=== PATIENT | female | born 1980 | race Two or more races ===

== ENCOUNTER → 2021-04-08 06:35 | Outpatient (CLI) | payer OTHER, SELFPAY ==
[2021-04-08 18:16] LABS: SARS-CoV-2 RNA PCR Negative
== END ==
PROVIDERS: PCP Family Medicine; Visit Provider Family Medicine
DX: R68.89 Other general symptoms and signs (principal); Z20.822 Contact with and (suspected) exposure to COVID-19
CPT/HCPCS: C9803; U0003; U0005

== ENCOUNTER 2021-11-15 16:44 | Emergency (ER) | payer BC, SELFPAY ==
--- NOTE | ~2021-11-15 | XR_ITS ---
EXAMINATION: XR chest 2V EXAM DATE: 11/15/2021 17:43 INDICATION: COUGH, CP, POS COVID. TECHNIQUE: Frontal and lateral projections of the chest obtained and reviewed. There is no prior jay jay dy for comparison. FINDINGS: The lungs are clear. There are no pleural effusions. The cardiomediastinal silhouette is within normal limits. There is no pneumothorax suspected. The bones and soft tissues are unremarkab le. IMPRESSION: No acute cardiopulmonary findings. Reviewed, dictated and finalized at location G. COUPLER
[2021-11-15 16:56] VITALS: BP 104/53; PULSE 74; RESP 20; TEMP 35.9; O2SAT 100
--- NOTE | 2021-11-15 17:29 | ED.URI ---
HPI - URI/Sore Throat General Chief Complaint: Upper Respiratory Infection Stated Complaint: sob/cp Time Seen by Provider: 11/15/21 17:29 Source: patient and RN notes reviewed Mode of arrival: ambulatory Limitations: no limitations History of Present Illness HPI Narrative: 41-year-old female presents with concern for cough, chest pressure, chest discomfort with coughing, shortness of breath, sore throat, body aches, fluid retention, skin burning. Reports her son tested positive for Covid 2 days ago. She denies any snlq-yqj-eokiaqh intervention for her symptoms. MD elicited complaint: cough and sore throat Related Data Allergies Allergy/AdvReac Type Severity Reaction Status Date / Time No Known Allergies Allergy Mild Unverified 12/21/09 00:21 Review of Systems Review of Systems: CONSTITUTIONAL: Reports malaise. Denies chills, sweats, or fever. EYES: Denies visual changes, redness, or discharge. ENT: Denies rhinorrhea, congestion, sinus pain, otalgia. Reports sore throat. CARDIOVASCULAR: Denies chest pain, palpitations, or edema. RESPIRATORY: Reports cough, chest discomfort with coughing, dyspnea. GASTROINTESTINAL: Denies abdominal pain, nausea, vomiting, diarrhea SKIN: Denies rash or itching. Reports skin burning MUSCULOSKELETAL: Reports myalgia. NEUROLOGIC: Denies headache. All systems reviewed & are unremarkable except as noted in HPI and below PMFSH Comments At time of signature, agree with nursing past medical, surgical, social and family history. There is no relevant family history pertinent to the presenting complaint Exam Narrative: GENERAL: Well-appearing, well-nourished, and in no acute distress. HEAD: Normocephalic EYES: PERRLA, conjunctivae clear ENT: Nares clear. Mucous membranes moist. TM pearly ashton with dull light reflex bilaterally; no tragal tenderness. Oropharynx not erythematous without lesions. Tonsils not enlarged and without exudate, no drooling, no hoarseness, no trismus, uvula midline. NECK: Supple. No lymphadenopathy CHEST: Clear to auscultation, breath sounds equal. No wheezing, rhonchi, rales, or stridor. No respiratory distress, speaks in full sentences. HEART: Regular rate and rhythm. No murmur heard. SKIN: Warm, dry, no rash. NEURO: Alert and oriented x3. PSYCH: Normal mood and affect Course Course Emergency Course: Patient is aware of diagnosis, understands and agrees to treatment plan. Anticipatory guidance given. Patient agrees to follow-up as directed and is aware of reasons to seek care at the emergency department. Portions of this record may have been created with voice recognition software Level of Care: Express Care Visit Vital Signs Vital signs: Vital Signs Temperature 96.7 F L 11/15/21 16:56 Pulse Rate 74 11/15/21 16:56 Respiratory Rate 20 11/15/21 16:56 Blood Pressure 104/53 L 11/15/21 16:56 Pulse Oximetry 100 11/15/21 16:56 Temperature 96.7 F L 11/15/21 16:56 Pulse Rate 74 11/15/21 16:56 Respiratory Rate 20 11/15/21 16:56 Blood Pressure 104/53 L 11/15/21 16:56 Pulse Oximetry 100 11/15/21 16:56 Reviewed. MDM - URI/Sore Throat MDM Narrative Medical decision making narrative: Differential diagnosis considered: Koehler virus, strep pharyngitis, allergic rhinitis, upper respiratory tract infection, sinusitis, rhinosinusitis, nasopharyngitis. viral pharyngitis, otitis media, otitis externa, pneumonia, bronchitis, viral cough syndrome, viral syndrome, and influenza. Exam findings show no acute concerns or changes; patient is non-toxic appearing and is in no distress. Patient is appropriate for outpatient treatment and follow-up. Lab Data Attestation: I reviewed the patient's lab results. Labs: Lab Results 11/15/21 Range/Units 16:56 POC SARS CoV-2 Ag Positive (Negative) Influenza A Screen Negative Reference Range: Negative Influenza B Screen Negative
== END 2021-11-15 18:09 | disposition home or self-care (01) ==
PROVIDERS: Emergency Provider Nurse Practitioner; PCP Family Medicine
DX: U07.1 COVID-19 (principal)
CPT/HCPCS: 71046; 87426; 87804; 99213; C9803; G0463

== ENCOUNTER 2022-04-11 11:39 | Emergency (ER) | payer BC, SELFPAY ==
[2022-04-11 11:57] VITALS: BP 93/53; PULSE 79; RESP 14; TEMP 36.6; O2SAT 100
[2022-04-11 13:49] LABS: Basophils Percent Auto 0.7 % (0.2-1.2); Eosinophils Absolute Auto 0.1 K/mm3 (0-0.3); Eosinophils Percent Auto 1.5 % (0-4.4); Hematocrit 37.1 % (37.0-47.0); Hemoglobin 11.5 g/dL (12.0-15.0); Lymphocytes Absolute Auto 1.64 K/mm3 (0.9-3.2); Lymphocytes Percent Auto 40.9 % (18.3-44.2); Mean Corpuscular Hemoglobin 27.7 pg (26-34); Mean Corpuscular Volume 89.4 fl (80-100); Mean Platelet Volume 10.1 fl (7.4-10.4); Monocytes Absolute Auto 0.3 K/mm3 (0.1-0.6); Monocytes Percent Auto 7.7 % (2.6-8.5); Neutrophils Percent Auto 49.2 % (45.5-73.1); Platelet Count Result 207 k/mm3 (150-375); Red Blood Count 4.15 M/mm3 (4.2-5.4); Red Cell Distribution Width 14.6 % (11.5-14.5)
[2022-04-11 14:07] LABS: Prothrombin Time 12.4 Seconds (11.1-14.7)
[2022-04-11 14:08] LABS: Partial Thromboplastin Time 29.5 SECONDS (22.3-36.8)
--- NOTE | 2022-04-11 14:16 | ED.GENADULT ---
HPI - General Adult General Chief complaint: Recheck/Abnormal Lab/Rx Stated complaint: here for iron infusion Time Seen by Provider: 04/11/22 13:12 History of Present Illness HPI narrative: Patient is a 41-year-old female who presents the ER at the recommendation of her primary care doctor for a possible iron infusion. She reports her ferritin was low and that her hemoglobin was also low. We have no access to the blood work. Patient denies any current active heavy bleeding. She does report she has heavy menses and she has been told by her residence hall director Dr. Bowen that she should be on hormones for it. No history of fibroids. No lower abdominal pain. No dark black stools. No hematemesis. Patient has not been having orthostasis. She does feel fatigued. Related Data Allergies Allergy/AdvReac Type Severity Reaction Status Date / Time No Known Allergies Allergy Mild Verified 04/11/22 14:20 Review of Systems Review of Systems: All systems reviewed & are unremarkable except as noted in HPI and below Constitutional: Constitutional: Denies chills, Reports fatigue and Denies fever(s) Cardiovascular: Cardiovascular: Denies chest pain, Denies rapid heart rate and Denies radiating jaw, neck or arm pain Respiratory: Respiratory: Denies cough, Denies dyspnea and Denies wheezing Gastrointestinal: Gastrointestinal: Denies abdominal pain, Denies nausea and Denies vomiting Comments: No blood in stool. Genitourinary: Genitourinary: Reports abnormal vaginal bleeding, Denies nocturia and Denies dysuria PMFSH Past Medical History Medical History (Updated 04/11/22 @ 14:30 by Hiram Henderson MD) Healthy female adult Surgical History Surgical History (Updated 04/11/22 @ 14:30 by Hiram Henderson MD) History of hysteroscopy Social History Social History (Updated 04/11/22 @ 14:30 by Hiram Henderson MD) Substance use: never Exam Narrative: GENERAL: Well-appearing, well-nourished, and in no acute distress. HEAD: Normocephalic, atraumatic. CHEST: Clear to auscultation. No respiratory distress. HEART: Regular rate and rhythm. Normal peripheral pulses. ABDOMEN: Soft, nontender, nondistended. EXTREMITIES: Normal range of motion. No edema. SKIN: Warm, dry, no rash. NEURO: Alert and oriented x3. PSYCH: Normal mood and affect. Course Course Emergency Course: Patient is very apprehensive about staying in the ER at all for any evaluation. We also discussed possibility of admission for blood transfusion as it was relayed that the patient may be severely anemic. At this time patient's hemoglobin is 11.5. She has been educated on iron rich diet and ferrous sulfate replacement. No iron infusion at this time. Follow-up with PCP/Patelynn. Vital Signs Vital signs: Vital Signs Temperature 97.8 F 04/11/22 11:57 Pulse Rate 79 04/11/22 11:57 Respiratory Rate 14 04/11/22 11:57 Blood Pressure 93/53 L 04/11/22 11:57 Pulse Oximetry 100 04/11/22 11:57 Oxygen Delivery Room Air 04/11/22 11:57 Temperature 97.8 F 04/11/22 11:57 Pulse Rate 79 04/11/22 11:57 Respiratory Rate 14 04/11/22 11:57 Blood Pressure 93/53 L 04/11/22 11:57 Pulse Oximetry 100 04/11/22 11:57 Oxygen Delivery Room Air 04/11/22 11:57 Medical Decision Making Vital Signs Vital Signs: Vital Signs Temperature 97.8 F 04/11/22 11:57 Pulse Rate 79 04/11/22 11:57 Respiratory Rate 14 04/11/22 11:57 Blood Pressure 93/53 L 04/11/22 11:57 Pulse Oximetry 100 04/11/22 11:57 Oxygen Delivery Room Air 04/11/22 11:57 Temperature 97.8 F 04/11/22 11:57 Pulse Rate 79 04/11/22 11:57 Respiratory Rate 14 04/11/22 11:57 Blood Pressure 93/53 L 04/11/22 11:57 Pulse Oximetry 100 04/11/22 11:57 Oxygen Delivery Room Air 04/11/22 11:57 Lab Data Result diagrams: 04/11/22 13:43 04/11/22 13:45 Labs: Lab Results 04/11/22 04/11/22 04/11/22 Range/Units 13:43 13:45
[2022-04-11 14:17] LABS: Alanine Aminotransferase 12 U/L (6-35); Albumin Level 4.4 g/dL (3.5-5.1); Alkaline Phosphatase 59 U/L (38-126); Anion Gap 6 mmol/L (8-16); Aspartate Amino Transferase 22 U/L (14-36); Bilirubin,Total 0.3 mg/dL (0.2-1.3); Blood Urea Nitrogen 10 mg/dL (7-17); Calcium 8.9 mg/dL (8.4-10.2); Carbon Dioxide 25 mmol/L (22-30); Chloride 107 mmol/L (98-107); Estimated CRCL calculation 84 ml/min; Estimated Glomerular Filt Rate > 60; Glucose 77 mg/dL (65-110); Potassium 4.1 mmol/L (3.4-5.0); Sodium 138 mmol/L (137-145)
== END 2022-04-11 14:40 | disposition home or self-care (01) ==
PROVIDERS: Emergency Provider Emergency Medicine; PCP Family Medicine
DX: D64.9 Anemia, unspecified (principal)
CPT/HCPCS: 36415; 80053; 85025; 85610; 85730; 86850; 86900; 86901; 99283

== ENCOUNTER 2022-09-08 05:47 | Emergency (ER) | payer BC, SELFPAY ==
[2022-09-08] VITALS (7 sets, daily range): BP systolic 85–102; BP diastolic 53–67; PULSE 65–84; RESP 12–18; TEMP 37.1–38; O2SAT 96–100
--- NOTE | ~2022-09-08 | XR_ITS ---
EXAMINATION: XR chest 1V portable DATE: 09/08/2022 06:36 INDICATION: Cough and shortness of breath. TECHNIQUE: A single frontal view of the chest was obtained. COMPARISON: Chest 2 views 11/15/2021 FINDINGS: The chest demonstrates clear lungs without pneumonia, pleural effusion, or pneumothorax. Th e heart size is normal. IMPRESSION: 1. No acute cardiopulmonary disease. Reviewed, dictated and finalized at location A. CE REP
--- NOTE | 2022-09-08 05:48 | ECG_ITS ---
Measurements Intervals [place] Rate: 85 P: 73 GA: 129 QRS: 55 QRSD: 84 T: -9 QT: 340 QTc: 405 Interpretive Statements SINUS RHYTHM BORDERLINE ST-T WAVE ABNORMALITY- INFERIOR LEADS BASELINE ARTIFACT- V6 BORDERLINE ECG NO PREVIOUS ECG AVAILABLE FOR COMPARISON Electronically Signed On 09-08-2022 10:47:20 [employer] by Aden Leggett D.O.
--- NOTE | 2022-09-08 06:24 | ED.GENADULT ---
HPI - General Adult General Chief complaint: Unspecified <Antonina Gimenez MD - Last Filed: 09/11/22 20:02> Stated complaint: not feeling well , body aches, chills <Antonina Gimenez MD - Last Filed: 09/11/22 20:02> Time Seen by Provider: 09/08/22 06:14 <Antonina Gimenez MD - Last Filed: 09/11/22 20:02> History of Present Illness HPI narrative: Patient is a 42-year-old female with no significant past medical history presenting with body aches. Patient states that she was recently treated for a sinus infection. States that she was improving until about 4 days ago when she developed diffuse myalgias, cough, fever, shortness of breath. States that her son has similar symptoms. States that she has been nauseated but denies vomiting or diarrhea. States that she has been constipated which is normal for her. No headache, numbness or weakness, chest pain, abdominal pain, dysuria, leg swelling. Patient has not yet taken anything for pain or fever. <Antonina Gimenez MD - Last Filed: 09/11/22 20:02> Related Data Home medications: Home Medications Medication Instructions Recorded Confirmed amoxicillin 875 mg-potassium tablet 09/08/22 clavulanate 125 mg tablet <Antonina Gimenez MD - Last Filed: 09/11/22 20:02> Allergies/adverse reactions: Allergies Allergy/AdvReac Type Severity Reaction Status Date / Time No Known Allergies Allergy Mild Verified 09/08/22 06:03 <Antonina Gimenez MD - Last Filed: 09/11/22 20:02> Review of Systems Review of Systems: All systems reviewed & are unremarkable except as noted in HPI and below <Antonina Gimenez MD - Last Filed: 09/11/22 20:02> [facility] Past Medical History Medical History: Medical History Healthy female adult <Antonina Gimenez MD - Last Filed: 09/11/22 20:02> Surgical History Surgical History: Surgical History History of hysteroscopy <Antonina Gimenez MD - Last Filed: 09/11/22 20:02> Social History Social History: Social History Substance use: never <Antonina Gimenez MD - Last Filed: 09/11/22 20:02> Course Course Emergency Course: I assumed care of this patient at shift change with pending labs and disposition. I have reexamined the patient she seems to be comfortable at this time. Informed her about her lab work, chest x-ray findings. Her symptoms started approximately 4 to 5 days ago but she has been have feeling sick for the last 10 days starting Tamiflu at this point is not recommended. I advised patient to drink plenty of fluids, Tylenol or ibuprofen for body aches and fever addressed. <Corby Willis MD - Last Filed: 09/08/22 08:19> Vital Signs Vital signs: Vital Signs Temperature 100.4 F H 09/08/22 06:00 Pulse Rate 84 09/08/22 06:00 Respiratory Rate 18 09/08/22 06:00 Blood Pressure 88/58 L 09/08/22 06:00 Pulse Oximetry 99 09/08/22 06:00 Oxygen Delivery Room Air 09/08/22 06:00 Temperature 98.8 F 09/08/22 07:51 Pulse Rate 65 09/08/22 09:37 Respiratory Rate 14 09/08/22 09:37 Blood Pressure 90/53 L 09/08/22 09:37 Pulse Oximetry 99 09/08/22 09:37 Oxygen Delivery Room Air 09/08/22 06:13 <Antonina Gimenez MD - Last Filed: 09/11/22 20:02> Vital Signs Temperature 100.4 F H 09/08/22 06:00 Pulse Rate 84 09/08/22 06:00 Respiratory Rate 18 09/08/22 06:00 Blood Pressure 88/58 L 09/08/22 06:00 Pulse Oximetry 99 09/08/22 06:00 Oxygen Delivery Room Air 09/08/22 06:00 Temperature 98.8 F 09/08/22 07:51 Pulse Rate 65 09/08/22 09:37 Respiratory Rate 14 09/08/22 09:37 Blood Pressure 90/53 L 09/08/22 09:37 Pulse Oximetry 99 09/08/22 09:37 Oxygen Delivery Room Air 09/08/22 06:13 <Corby Willis MD - Last Filed: 11
[2022-09-08] MEDS: ONDANSETRON INJ 4 MG/2 ML VIAL IV PUSH (06:44)
[2022-09-08] MEDS: KETOROLAC 15 MG/ML VIAL (*BKC) IV PUSH (06:45)
[2022-09-08] MEDS: SODIUM CHLORIDE 0.9% IV 1,000 ML 999 ML IV CONT ×2 (06:46→08:40)
[2022-09-08 06:57] LABS: Basophils Percent Auto 0.4 % (0.2-1.2); Eosinophils Percent Auto 0.4 % (0-4.4); Hematocrit 33.1 % (37.0-47.0); Hemoglobin 10.5 g/dL (12.0-15.0); Immature Granulocyte Absolute 0.01 K/mm3 (0.00-0.031); Immature Granulocyte Percent A 0.4 % (0-0.5); Lymphocytes Percent Auto 32.9 % (18.3-44.2); Mean Corpuscular HGB Conc 31.7 g/dl (32-36); Mean Corpuscular Hemoglobin 28.5 pg (26-34); Mean Corpuscular Volume 89.9 fl (80-100); Mean Platelet Volume 10.5 fl (7.4-10.4); Monocytes Absolute Auto 0.2 K/mm3 (0.1-0.6); Monocytes Percent Auto 8.2 % (2.6-8.5); Neutrophils Absolute Auto 1.4 K/mm3 (1.3-6.7); Neutrophils Percent Auto 57.7 % (45.5-73.1); Platelet Count Result 130 k/mm3 (150-375); Red Blood Count 3.68 M/mm3 (4.2-5.4); Red Cell Distribution Width 14.2 % (11.5-14.5); White Blood Count 2.4 K/mm3 (4.5-10.0)
[2022-09-08 07:08] LABS: Alanine Aminotransferase 11 U/L (6-35); Albumin Level 3.3 g/dL (3.5-5.1); Alkaline Phosphatase 52 U/L (38-126); Anion Gap 4 mmol/L (8-16); Aspartate Amino Transferase 19 U/L (14-36); Bilirubin,Total 0.2 mg/dL (0.2-1.3); Blood Urea Nitrogen 9 mg/dL (7-17); Calcium 7.6 mg/dL (8.4-10.2); Carbon Dioxide 26 mmol/L (22-30); Chloride 105 mmol/L (98-107); Estimated Glomerular Filt Rate > 60; Glucose 93 mg/dL (65-110); Lipase 51 U/L (23-300); Potassium 4.1 mmol/L (3.4-5.0); Sodium 135 mmol/L (137-145)
[2022-09-08 07:30] LABS: Troponin I < 0.012 ng/mL (0.000-0.034)
[2022-09-08 07:33] LABS: Influenza A QL RT-PCR Positive (Negative); Influenza B QL RT-PCR Negative (Negative); RSV RNA, RT-PCR Negative (Negative); SARS-CoV-2 RNA PCR Negative
== END 2022-09-08 09:38 | disposition home or self-care (01) ==
PROVIDERS: Emergency Medicine; Emergency Provider Family Medicine; PCP Family Medicine
DX: J10.1 Influenza due to other identified influenza virus with other respiratory manifestations (principal); Z20.822 Contact with and (suspected) exposure to COVID-19; R94.31 Abnormal electrocardiogram [ECG] [EKG]
CPT/HCPCS: 36415; 71045; 80053; 83690; 84484; 85025; 87637; 93005; 96361; 96365; 96375; 99284; J0131; J1885; J2405; J7030

== ENCOUNTER 2022-10-15 10:42 | Outpatient (CLI) | payer BC, SELFPAY ==
[2022-10-19 09:39] LABS: Gliadin AB, IgG <1.0 U/mL (<15.0); TTG IGA AB <1.0 U/mL (<15.0)
== END 2022-10-15 10:43 | disposition home or self-care (01) ==
LOC: ANHLAB 10:42
PROVIDERS: PCP Family Medicine; Visit Provider Nurse Practitioner Family
DX: R14.0 Abdominal distension (gaseous) (principal)
CPT/HCPCS: 36415; 83516; 86255

== ENCOUNTER 2022-10-17 13:21 | Outpatient (CLI) | payer BC, SELFPAY ==
[2022-10-17 13:37] LABS: Basophils Percent Auto 0.8 % (0.2-1.2); Eosinophils Absolute Auto 0.1 K/mm3 (0-0.3); Eosinophils Percent Auto 1.9 % (0-4.4); Hematocrit 35.9 % (37.0-47.0); Hemoglobin 11.3 g/dL (12.0-15.0); Immature Granulocyte Absolute 0.01 K/mm3 (0.00-0.031); Immature Granulocyte Percent A 0.3 % (0-0.5); Lymphocytes Absolute Auto 1.58 K/mm3 (0.9-3.2); Lymphocytes Percent Auto 42.1 % (18.3-44.2); Mean Corpuscular HGB Conc 31.5 g/dl (32-36); Mean Corpuscular Hemoglobin 28.1 pg (26-34); Mean Corpuscular Volume 89.3 fl (80-100); Mean Platelet Volume 10.2 fl (7.4-10.4); Monocytes Absolute Auto 0.2 K/mm3 (0.1-0.6); Monocytes Percent Auto 6.1 % (2.6-8.5); Neutrophils Absolute Auto 1.8 K/mm3 (1.3-6.7); Neutrophils Percent Auto 48.8 % (45.5-73.1); Platelet Count Result 182 k/mm3 (150-375); Red Blood Count 4.02 M/mm3 (4.2-5.4); Red Cell Distribution Width 14.2 % (11.5-14.5); White Blood Count 3.8 K/mm3 (4.5-10.0)
[2022-10-17 16:07] LABS: Iron 41 ug/dL (37-170)
[2022-10-17 16:11] LABS: Alanine Aminotransferase 15 U/L (6-35); Albumin Level 4.5 g/dL (3.5-5.1); Alkaline Phosphatase 57 U/L (38-126); Anion Gap 8 mmol/L (8-16); Aspartate Amino Transferase 28 U/L (14-36); Bilirubin,Total 0.4 mg/dL (0.2-1.3); Blood Urea Nitrogen 9 mg/dL (7-17); Calcium 8.9 mg/dL (8.4-10.2); Carbon Dioxide 25 mmol/L (22-30); Chloride 106 mmol/L (98-107); Estimated Glomerular Filt Rate > 60; Glucose 86 mg/dL (65-110); Lactate Dehydrogenase 164 U/L (120-246); Sodium 139 mmol/L (137-145)
[2022-10-17 16:17] LABS: Percent Iron Saturation 9 % (20-50)
[2022-10-17 16:46] LABS: Ferritin 6.24 ng/mL (6.24-137)
[2022-10-17 17:17] LABS: Folic Acid 10.4 ng/mL (2.76->20)
[2022-10-22 14:14] LABS: Anti Nuclear Antibody Titer 1:40 (Negative)
== END 2022-10-17 13:22 | disposition home or self-care (01) ==
LOC: ANHLAB 13:22
PROVIDERS: PCP Family Medicine; Visit Provider Internal Medicine Hematology & Oncology
DX: D64.9 Anemia, unspecified (principal)
CPT/HCPCS: 36415; 80053; 82607; 82728; 82746; 83540; 83550; 83615; 85025; 86038; 86039

== ENCOUNTER 2023-05-26 14:55 | Outpatient (CLI) | payer BC, SELFPAY ==
[2023-05-26 15:21] LABS: Basophils Percent Auto 0.5 % (0.2-1.2); Eosinophils Absolute Auto 0.1 K/mm3 (0-0.3); Eosinophils Percent Auto 3.5 % (0-4.4); Hematocrit 39.9 % (37.0-47.0); Hemoglobin 13.1 g/dL (12.0-15.0); Immature Granulocyte Absolute 0.01 K/mm3 (0.00-0.031); Immature Granulocyte Percent A 0.3 % (0-0.5); Lymphocytes Absolute Auto 1.32 K/mm3 (0.9-3.2); Lymphocytes Percent Auto 35.1 % (18.3-44.2); Mean Corpuscular HGB Conc 32.8 g/dl (32-36); Mean Corpuscular Volume 94.3 fl (80-100); Mean Platelet Volume 10.3 fl (7.4-10.4); Monocytes Absolute Auto 0.2 K/mm3 (0.1-0.6); Monocytes Percent Auto 4.8 % (2.6-8.5); Neutrophils Absolute Auto 2.1 K/mm3 (1.3-6.7); Neutrophils Percent Auto 55.8 % (45.5-73.1); Platelet Count Result 198 k/mm3 (150-375); Red Blood Count 4.23 M/mm3 (4.2-5.4); Red Cell Distribution Width 12.9 % (11.5-14.5); White Blood Count 3.8 K/mm3 (4.5-10.0)
[2023-05-26 17:45] LABS: Folic Acid 9.2 ng/mL (2.76->20)
== END 2023-05-26 14:56 | disposition home or self-care (01) ==
LOC: ANHLAB 14:58
PROVIDERS: Visit Provider Internal Medicine Hematology & Oncology
DX: D64.9 Anemia, unspecified (principal)
CPT/HCPCS: 36415; 82607; 82746; 85025

== ENCOUNTER 2023-05-27 14:04 | Outpatient (CLI) | payer BC, SELFPAY ==
[2023-05-27 16:30] LABS: Iron 110 ug/dL (37-170)
[2023-05-27 16:39] LABS: Percent Iron Saturation 27 % (20-50)
== END 2023-05-27 14:05 | disposition home or self-care (01) ==
LOC: ANHLAB 14:06
PROVIDERS: Visit Provider Internal Medicine Hematology & Oncology
DX: D64.9 Anemia, unspecified (principal)
CPT/HCPCS: 36415; 82728; 83540; 83550; J0330; J2371; J2704

== ENCOUNTER 2024-12-05 19:22 | Emergency (ER) | payer OTHER, SELFPAY ==
[2024-12-05 19:35] VITALS: BP 107/64; PULSE 77; RESP 16; TEMP 37.6; O2SAT 100
--- NOTE | 2024-12-05 19:41 | ED.URI ---
HPI - URI/Sore Throat General Chief Complaint: Upper Respiratory Infection Stated Complaint: Congested Time Seen by Provider: 12/05/24 19:41 Source: patient, RN notes reviewed and old records reviewed Mode of arrival: ambulatory Limitations: no limitations History of Present Illness HPI Narrative: Patient presents with complaints of flu-like symptoms that have been present for 2 days. She has not been taking any [id number] medication for her symptoms. No other concerns or complaints at this time Related Data Home Medications ?Medication ?Instructions ?Recorded ?Confirmed ?Last Taken ?Type No Home Medications 11/27/22 01/27/23 Unknown History Allergies Allergy/AdvReac Type Severity Reaction Status Date / Time No Known Allergies Allergy Mild Verified 12/05/24 19:36 Review of Systems Review of Systems: All systems reviewed & are unremarkable except as noted in HPI and below Constitutional: Constitutional: Reports no additional constitutional complaints, Reports body ache(s), Reports chills, Reports headache(s) and Reports lethargy ENT: Reports system reviewed and no additional complaints, except as documented, Reports nasal congestion, Reports nasal discharge and Reports sore throat Cardiovascular: Cardiovascular: Reports no additional cardiovascular complaints Respiratory: Respiratory: Reports no additional respiratory complaints and Reports cough Gastrointestinal: Gastrointestinal: Reports no additional gastrointestinal complaints [facility] Past Medical History Medical History HALLE positive Leukopenia Anemia Abdominal bloating Constipation Healthy female adult Surgical History Surgical History History of hysteroscopy Social History Social History Smoking status: Never smoker Substance use: never Spiritual care concerns: No Comments At the time of my signature, I reviewed and agree with the nursing past medical, surgical, social, and family history. There is no relevant family history pertinent to the patient complaint. Exam Const: General: cooperative, no acute distress, alert and awake Orientation/consciousness: oriented to person, oriented to place and oriented to time HENMT: Head: normal to inspection Resp: Effort & Inspection: normal respiratory effort and able to speak in complete sentences Auscultation: clear to auscultation bilaterally, no crackles, no rales, no rhonchi and no wheezes Cardio: Palpation: normal PMI Rate: regular rate Rhythm: regular rhythm Heart sounds: S1 normal heart sound present and S2 normal heart sound present Neuro: General: oriented to person, oriented to place and oriented to time Cranial nerves: Yes CN's II-XII intact bilaterally Psych: Appearance: grossly normal Thought process: Normal thought process present Insight: Good insight present (Psych) Judgement: Good judgement present (Psych) Course Course Level of Care: Express Care Visit Vital Signs Vital signs: Vital Signs Temperature 99.6 F 12/05/24 19:35 Pulse Rate 77 12/05/24 19:35 Respiratory Rate 16 12/05/24 19:35 Blood Pressure 107/64 12/05/24 19:35 Pulse Oximetry 100 12/05/24 19:35 Oxygen Delivery Room Air 12/05/24 19:35 Temperature 99.6 F 12/05/24 19:35 Pulse Rate 77 12/05/24 19:35 Respiratory Rate 16 12/05/24 19:35 Blood Pressure 107/64 12/05/24 19:35 Pulse Oximetry 100 12/05/24 19:35 Oxygen Delivery Room Air 12/05/24 19:35 Reviewed MDM - URI/Sore Throat MDM Narrative Medical decision making narrative: Negative COVID, negative flu. Suspect that symptoms are viral in origin. Supportive care measures discussed. Patient nontoxic appearing, stable for discharge home. Discharge instructions reviewed with patient, as well as provided in writing per nursing staff. The instructions also include specific and strict return/GO TO THE ER as well as f/u information. All questions have been answered, and the patient deny any further questions with discharge and discharge plan. Some parts of this dictation were generated by voice recognition software and may contain typographical and/or grammatical inaccuracies. Differential Diagnosis Differential diagnosis: Likely upper respiratory infection, otitis media, viral infection and influenza Medical Records Attestation: I reviewed the patient's medical records. Lab Data Attestation: I reviewed the patient's lab results. Labs: Lab Results 12/05/24 Range/Units 19:40 POC Influenza A Ag Negative (Negative) POC Influenza B Ag Negative (Negative) POC SARS CoV-2 Ag Negative (Negative) Discharge Plan Discharge Clinical Impression: Viral infection Patient Disposition: Home, Self-Care Condition: Stable Instructions: Antibiotic Form, Influenza (ED) Additional Instructions: Use yagq-[id number] medications to treat your symptoms. Plenty of rest and fluids. Follow with provider. Emergency department for new or worse symptoms Patient Language: [place] Prescriptions: No Action No Home Medications Follow-up/Referrals: Randy Medina MD [Primary Care Provider] - 2 Weeks Time of Disposition: 19:56
[2024-12-05 20:00] LABS: EDCOVIDSCREEN Negative (Negative); EDINFLUASCREEN Negative (Negative); EDINFLUBSCREEN Negative (Negative)
== END 2024-12-05 19:58 | disposition home or self-care (01) ==
PROVIDERS: Emergency Provider Nurse Practitioner Family; PCP Emergency Medicine
DX: B34.9 Viral infection, unspecified (principal); Z20.822 Contact with and (suspected) exposure to COVID-19
CPT/HCPCS: 87426; 87804; 99212; G0463

== ENCOUNTER 2025-01-16 12:48 | Emergency (ER) | payer OTHER, SELFPAY ==
--- NOTE | 2025-01-16 12:49 | ED_ITS ---
HPI - Female Genitourinary General Chief complaint: Urogenital-Female Stated complaint: UTI Time Seen by Provider: 01/16/25 12:49 Source: patient Mode of arrival: ambulatory Limitations: no limitations History of Present Illness HPI Narrative: Chad is a 44-year-old female patient presenting to the clinic today with complaints of possible UTI. She reports over the last 3 days she has had some fatigue and over the last 2 days she has had a bad urine odor. This morning she started having some low back pain and lower pelvic pain. States she has recently gotten off her menstrual cycle. No concern for STI. Is complaining burning with urination, urinary frequency, and low urine output. No fevers or chills. Related Data Allergies Allergy/AdvReac Type Severity Reaction Status Date / Time No Known Allergies Allergy Mild Verified 01/16/25 13:00 Review of Systems Review of Systems: Pertinent positives per HPI. Patient denies any fever, chills, rash, headache, visual changes, dizziness, cough, runny nose, sore throat, shortness of breath, chest pain, palpitations, nausea, vomiting, diarrhea, constipation. PMFSH Past Medical History Medical History HALLE positive Leukopenia Anemia Abdominal bloating Constipation Healthy female adult Surgical History Surgical History History of hysteroscopy Social History Social History Smoking status: Never smoker Substance use: never Spiritual care concerns: No Comments At the time of my signature, I reviewed and agree with the nursing past medical, surgical, social, and family history. There is no relevant family history pertinent to the patient complaint. Exam Narrative: General: Well-developed, well nourished, in no apparent distress. Head: Normocephalic, atraumatic. Cardio: Regular rate and rhythm, s1 and s2 normal, no murmur appreciated. Resp: Clear to auscultation bilaterally, no rhonchi, rales, wheezing or rubs. Abdomen: Soft, pliable, bowel sounds present in all quadrants, suprapubic tender to palpation, no organomegly, no CVAT tenderness. Course Course Emergency Course: Portions of this record may have been created with voice recognition software. Level of Care: Express Care Visit Vital Signs Vital signs: Vital signs reviewed MDM - Female Genitourinary MDM Narrative Medical decision making narrative: At the time of visit patient is resting comfortably on the exam table. Patient appears to be nontoxic. Labs: Urinalysis positive for leukocytes, blood, and protein. We will send urine for culture Plan: I suspect patient has acute cystitis. We will send urine for culture. Supportive measures were discussed with the patient and they voiced understanding discharge instructions and agrees to treatment plan. Return precautions reviewed Differential Diagnosis Differential diagnosis: Likely urinary tract infection and cystitis Discharge Plan Discharge Clinical Impression: UTI (urinary tract infection) Qualifiers: Urinary tract infection type: acute cystitis Hematuria presence: with hematuria Qualified Code(s): N30.01 - Acute cystitis with hematuria Patient Disposition: Home Condition: Stable Instructions: Antibiotic Form, Urinary Tract Infection in Women (ED) Additional Instructions: Urinalysis positive for leukocytes, protein, and blood. We will send urine for culture. Take Bactrim as prescribed Increase fluids and stay well hydrated Wipe front to back. May use wet wipes. Avoid tub baths If sexually active- pee before and after intercourse. Wear cotton panties Avoid tight clothing up against the genitals Follow up with your PCP in 1 week if symptoms persist. Patient Language: [place] Prescriptions: New sulfamethoxazole-trimethoprim [Bactrim DS] 800-160 mg tablet 1 tablet PO Q12H 5 Days Qty: 10 0RF Follow-up/Referrals: Randy Medina MD [Primary Care Provider] - Time of Disposition: 13:11 Quality NIHSS Nursing Documentation ED NIHSS nursing documentation: reviewed/agree
[2025-01-16 12:55] VITALS: BP 102/67; PULSE 76; RESP 14; TEMP 36.8; O2SAT 100
[2025-01-16 13:14] LABS: EDUAAPPEAR Cloudy; EDUABILI Negative (Negative); EDUABLOOD 3+ (Negative); EDUACOLOR1 Yellow; EDUAGLUCOSE Negative (Negative); EDUAKETONE Negative (Negative); EDUALEUKO Trace (Negative); EDUANITRATE Negative (Negative); EDUAPH 5.5; EDUAPROTEIN 1+ (Negative)
== END 2025-01-16 13:20 | disposition home or self-care (01) ==
PROVIDERS: Emergency Provider Nurse Practitioner Family; PCP Emergency Medicine
DX: N30.01 Acute cystitis with hematuria (principal)
CPT/HCPCS: 81003; 87086; 99213; G0463